=== PATIENT | female | born 1975 | race Caucasian/White ===

== ENCOUNTER 2018-06-03 09:30 | Inpatient (IN) | payer OTHER ==
[2018-06-03] MEDS ORDERED: Acetaminophen 500 MG Tab PO ONE (09:45)
[2018-06-03] MEDS ORDERED: Gabapentin 300 MG Cap PO ONE (09:45)
[2018-06-03] MEDS ORDERED: Scopolamine 1.5 MG Transdermal Patch TOP SCH (09:45)
[2018-06-03] MEDS ORDERED: Celecoxib 200 MG Cap PO ONE (09:45)
[2018-06-03] MEDS ORDERED: Dextrose 5%-Lactated Ringers 1,000 ML IV SCH (10:00)
[2018-06-03] MEDS ORDERED: Rocuronium 50 MG/5 ML Vial ONE ×2 (10:05→13:55)
[2018-06-03] MEDS ORDERED: Neostigmine Methylsulfate 1 MG/ML 5 ML Syringe ONE (10:05)
[2018-06-03] MEDS ORDERED: Dexamethasone 4 MG/ML SDV ONE (10:05)
[2018-06-03] MEDS ORDERED: Glycopyrrolate 0.2 MG/ML 5 ML MDV ONE (10:05)
[2018-06-03] MEDS ORDERED: Propofol 200 MG/20 ML SDV ONE (10:05)
[2018-06-03] MEDS ORDERED: Ondansetron 4 MG/2 ML SDV ONE (10:05)
[2018-06-03] MEDS ORDERED: Succinylcholine 200 MG/10 ML MDV ONE (10:05)
[2018-06-03] MEDS ORDERED: Levofloxacin/Dextrose 5%-Water 500 MG in Premix Bag 1 BAG IV ONE (11:00)
[2018-06-03] MEDS ORDERED: Lidocaine 0.4%/D5W 2 GM/500 ML BAG IV SCH (11:15)
[2018-06-03] MEDS ORDERED: Ropivacaine 60 ML, Dexamethasone 8 MG, EPINEPHrine 0.4 MG, Sodium Chloride 0.9% 17.6 ML NERVRT SCH ×4 (11:15)
[2018-06-03] MEDS ORDERED: Lidocaine 2% 100 MG/5 ML Syringe IVPUSH SCH (11:15)
[2018-06-03] MEDS ORDERED: Ketamine 500 MG/5 ML MDV IV SCH (11:15)
[2018-06-03] MEDS ORDERED: Ketamine 50 MG in Sodium Chloride 0.9% 49.5 ML IV SCH (11:15)
[2018-06-03] MEDS ORDERED: Levofloxacin 500 MG/20 ML SDV ONE (13:53)
[2018-06-03] MEDS ORDERED: hydrOXYzine HCl 100 MG/2 ML SDV IM ONE (15:23)
[2018-06-03] MEDS ORDERED: fentaNYL 100 MCG/2 ML SDV IVPUSH ONE (15:23)
[2018-06-03] MEDS ORDERED: HYDROmorphone 0.5 MG/0.5 ML Syringe IVPUSH PRN (16:16)
[2018-06-03] MEDS ORDERED: HYDROmorphone 1 MG/ML Syringe IV PRN (16:16)
[2018-06-03] MEDS ORDERED: diphenhydrAMINE 50 MG/ML SDV IVPUSH PRN (16:16)
[2018-06-03] MEDS ORDERED: Labetalol 20 MG/4 ML Syringe IVPUSH PRN (16:16)
[2018-06-03] MEDS: Pantoprazole 40 MG Vial IVPUSH SCH (17:21)
[2018-06-03] MEDS: MVI, Adult with Vitamin K 10 ML, Thiamine 200 MG, Chromium/Copper/Mang/Selen/Zn 1 ML in... IV SCH ×4 (17:21)
[2018-06-03] MEDS: Acetaminophen 325 MG Tab PO SCH ×2 (17:22→23:14)
[2018-06-03] MEDS: Ondansetron 4 MG/2 ML SDV IVPUSH PRN (17:44)
[2018-06-03] MEDS: Metoclopramide 10 MG/2 ML SDV IVPUSH PRN (19:19)
[2018-06-03] MEDS: Gabapentin 300 MG Cap PO SCH (20:19)
[2018-06-03] MEDS: Heparin Sodium 5,000 Units/ML Vial SUBCUT SCH (20:19)
[2018-06-03] MEDS ORDERED: Ondansetron 4 MG/2 ML SDV IVPUSH ONE (20:38)
[2018-06-03] MEDS: hydrOXYzine HCl 100 MG/2 ML SDV IM PRN (22:17)
[2018-06-03] MEDS: Dextrose 5%-Lactated Ringers 1,000 ML IV SCH (23:11)
[2018-06-04] MEDS: Metoclopramide 10 MG/2 ML SDV IVPUSH PRN ×3 (01:42→22:01)
[2018-06-04] MEDS: Ondansetron 4 MG/2 ML SDV IVPUSH PRN ×5 (01:45→22:02)
[2018-06-04] MEDS ORDERED: Iohexol 647 MG/ML 50 ML SDV PO STA (02:08)
--- NOTE | 2018-06-04 03:20 | CRLCR ---
INDICATION: Status post gastric sleeve surgery. Evaluate for leaks. COMPARISON: None available. FINDINGS: Two erect films of the abdomen are obtained upon swallowing oral contrast. The film obtained immediately upon swallowing shows passage of contrast into a small diameter gastric fundus with no sign of any extravasation. The film obtained after a 13 minutes delay shows prompt passage of contrast through the nondistended stomach into the nondistended small bowel, reaching the jejunum in the left lower quadrant. There continues to be no sign of extravasation. A Steve-Hanley drain is seen in the left upper quadrant. There is no sign of distention of the small bowel or colon to suggest obstruction or ileus. There is no sign of free air or distinct mass. The osseous structures are normal in appearance for the patient`s age. There is moderate linear atelectasis in the left lung base. The right lung base is clear. IMPRESSION: Prompt passage of swallowed contrast from the small caliber gastric fundus and through the stomach and proximal small bowel. No sign of any extravasation of contrast from the stomach. Moderate linear atelectasis in the left lung base. Dictated by Jose Rob MD @ Jun 04 2018 3:15AM Signed by Dr. Jose Rob @ Jun 04 2018 3:18AM
[2018-06-04] MEDS: Dextrose 5%-Lactated Ringers 1,000 ML IV SCH ×3 (04:53→22:43)
[2018-06-04] MEDS: hydrOXYzine HCl 100 MG/2 ML SDV IM PRN (05:20)
[2018-06-04] MEDS: Acetaminophen 325 MG Tab PO SCH ×4 (07:15→23:13)
[2018-06-04] MEDS ORDERED: LORazepam 2 MG/ML SDV IVPUSH PRN ×3 (07:47→21:22)
[2018-06-04] MEDS: Heparin Sodium 5,000 Units/ML Vial SUBCUT SCH ×2 (07:59→19:39)
[2018-06-04] MEDS: Celecoxib 200 MG Cap PO SCH (09:54)
[2018-06-04] MEDS: Gabapentin 300 MG Cap PO SCH ×3 (09:54→21:44)
[2018-06-04] MEDS: Escitalopram 20 MG Tab PO SCH (09:54)
[2018-06-04] MEDS: SCOPOLAMINE PATCH CHECK TOP SCH (09:55)
[2018-06-04] MEDS: Levofloxacin/Dextrose 5%-Water 500 MG in Premix Bag 1 BAG IV SCH (11:07)
[2018-06-04] MEDS: MVI, Adult with Vitamin K 10 ML, Thiamine 200 MG, Chromium/Copper/Mang/Selen/Zn 1 ML in... IV SCH ×4 (16:55)
[2018-06-04] MEDS: Pantoprazole 40 MG Vial IVPUSH SCH (16:57)
[2018-06-05] MEDS: Ondansetron 4 MG/2 ML SDV IVPUSH PRN ×2 (02:15→07:12)
[2018-06-05] MEDS: Metoclopramide 10 MG/2 ML SDV IVPUSH PRN ×2 (05:18→11:27)
[2018-06-05] MEDS: Acetaminophen 325 MG Tab PO SCH ×4 (05:26→23:19)
[2018-06-05] MEDS: Dextrose 5%-Lactated Ringers 1,000 ML IV SCH (07:11)
[2018-06-05] MEDS: Celecoxib 200 MG Cap PO SCH (08:19)
[2018-06-05] MEDS: Gabapentin 300 MG Cap PO SCH ×3 (08:19→21:09)
[2018-06-05] MEDS: Heparin Sodium 5,000 Units/ML Vial SUBCUT SCH ×2 (08:19→21:08)
[2018-06-05] MEDS: Escitalopram 20 MG Tab PO SCH (08:19)
[2018-06-05] MEDS: SCOPOLAMINE PATCH CHECK TOP SCH (08:20)
[2018-06-05] MEDS ORDERED: Cyanocobalamin (Vitamin B12) 1,000 MCG/ML SDV IM ONE (09:00)
[2018-06-05] MEDS: Magnesium Hydroxide 400 MG/5 ML Susp 30 ML Cup PO SCH ×2 (10:16→21:09)
[2018-06-05] MEDS: Levofloxacin/Dextrose 5%-Water 500 MG in Premix Bag 1 BAG IV SCH (10:18)
--- NOTE | 2018-06-05 14:13 | PN ---
DATE OF SERVICE: 06/05/2018 The patient has been afebrile with stable vital signs. Overall, the nausea now seems to be abating. We will continue the Reglan and Veronica p.r.n. increased oral intake today after getting the shower. She may be ready for discharge home tomorrow. Wilbur Jovel MD /[id number]
[2018-06-05] MEDS: MVI, Adult with Vitamin K 10 ML, Thiamine 200 MG, Chromium/Copper/Mang/Selen/Zn 1 ML in... IV SCH ×4 (17:26)
[2018-06-05] MEDS: Pantoprazole 40 MG Vial IVPUSH SCH (17:26)
[2018-06-06] MEDS: Acetaminophen 325 MG Tab PO SCH ×2 (05:04→12:02)
[2018-06-06] MEDS: Gabapentin 300 MG Cap PO SCH (08:39)
[2018-06-06] MEDS: Celecoxib 200 MG Cap PO SCH (08:39)
[2018-06-06] MEDS: Heparin Sodium 5,000 Units/ML Vial SUBCUT SCH (08:39)
[2018-06-06] MEDS: Escitalopram 20 MG Tab PO SCH (08:40)
--- NOTE | 2018-06-06 13:47 | PN ---
DATE OF SERVICE: 06/04/2018 The patient has been afebrile with stable vital signs. She does have a problem with some nausea that she develops after the Reglan and Zofran time period has run off. We will add some Ativan today to that, and hopefully that will be something that wears off over the next 24 hours. Otherwise, upper GI looks good. She is otherwise doing satisfactorily. We will restart her Kyleena and Lexapro today and add the Ativan to the anti-nausea mix, as mentioned above. Wilbur Jovel MD /[id number]
--- NOTE | 2018-06-07 08:37 | DISCH ---
ADMISSION DIAGNOSES: 1. Morbid obesity. 2. Vitamin D deficiency. 3. Prediabetes. 4. Depression. DISCHARGE DIAGNOSIS: Laparoscopic sleeve gastrectomy, liver biopsy, repair of diaphragmatic hernia, excision of mediastinal lipoma, and excision of accessory spleen for morbid obesity, hepatomegaly, diaphragmatic hernia, mediastinal lipoma, accessory spleen at risk for hemorrhage. Date of surgery: 06/03/2018. Surgeon: Wilbur Jovel MD. HISTORY: Tana Dooley is a 42-year-old female with longstanding history of morbid obesity and increasing comorbidities. After preoperative evaluation and discussion of possible risks and possible complications, she wished to proceed with surgical procedure. HOSPITAL COURSE: Tana had her surgery on 06/03/2018. She had no operative complications. On postoperative day #1, her upper GI was normal and she struggled with nausea. On postoperative day #1 and #2, she was given IV Ativan, IV Reglan, and Zofran. On postoperative day #2 towards evening, her nausea did decrease. She was able to get in on 10,020 mL of liquid. Her SHOBHA drain put out 75 mL. Urine output was 2300. She was able to be discharged to home on 06/06/2018 without any complications. She did receive dietary instruction. PHYSICAL EXAMINATION: GENERAL: Tana Dooley is a 42-year-old female. VITAL SIGNS: Height is 5 feet 4.17 inches, weight is 288 pounds. BMI is 49. TPR 95.8, 62, 16, blood pressure 128/90. HEENT: Negative. NECK: Supple. HEART: Regular rate and rhythm. LUNGS: Clear. ABDOMEN: Sutures intact. Drain is intact at time of rounds. This will be removed prior to discharge. Abdominal binder currently is off. EXTREMITIES: Without peripheral edema. DISPOSITION: Discharged to home. CONDITION: Stable and improving. FOLLOWUP APPOINTMENT: On 06/14/2018 at 10 a.m. HOME MEDICATIONS: 1. Tylenol 650 mg q.6 hours p.r.n. pain. 2. Celebrex 200 mg oral daily, start tomorrow and continue for 14 days. 3. Zofran ODT 4 mg every 6 hours p.r.n. nausea #30. To resume home medications: 1. Lexapro 20 mg oral daily. 2. Kyleena, it is her IUD, continue for 18 months. 3. Stop taking all vitamins and supplements until first postoperative appointment. DIET: Step 2 gastric bypass diet with no cereal for 4 weeks until 07/02/2018. ACTIVITY: Other activity as tolerated. No lifting greater than 10 pounds for 2 weeks. Walk 6 times daily, distance and time as tolerated. Driving after discharge: Do not drive for 1 week. Shower/bathing, may shower. DISCHARGE INSTRUCTIONS: Notify provider if any fever. Wound incision care, keep site clean and dry. Wear abdominal binder for 2 weeks and then as tolerated. Use incentive spirometer 10 times every hour while awake.
--- NOTE | 2018-06-09 10:52 | OR ---
DATE OF PROCEDURE: 06/03/2018 PREOPERATIVE DIAGNOSIS: Morbid obesity. POSTOPERATIVE DIAGNOSES: 1. Morbid obesity. 2. Marked hepatomegaly. 3. Paraesophageal diaphragmatic hernia. 4. Mediastinal lipoma. 5. 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 OPERATIVE PROCEDURES: 1. Laparoscopic sleeve gastrectomy (92905). 2. Nash-Cut needle liver biopsy (95831). 3. Repair of paraesophageal diaphragmatic hernia (60269). 4. Excision of mediastinal lipoma (93819). 5. Excision of accessory spleen adherent to omental peritoneum (16549). ANESTHESIA: General. ASSISTANTS: 1. Emily Nicholson PA-C. 2. Garry Reyes MS1. INDICATIONS FOR PROCEDURE: This is a 42-year-old female presenting with longstanding morbid obesity and increasingly significant comorbidities. After preoperative evaluation and discussion, she wished to proceed with a sleeve gastrectomy. Potential risks including bleeding, infection, injury to the underlying viscera, leaks from the staple lines, as well as the possibility of cardiopulmonary, septic, or hemorrhagic complications leading to were all discussed, and the patient wishes to proceed. DETAILS OF PROCEDURE: The patient was taken to the operating room. After general endotracheal anesthesia was induced, she was placed in a lithotomy position, and the abdomen was prepped and draped. At 15 cm inferior and 5 cm left of the xiphoid process, a transverse incision was made and the peritoneal cavity entered under direct vision with an Optiview trocar inflated to 15 mmHg pressure with CO2. Laparoscope was then reinserted. No underlying trocar insertion site injuries were seen. Following this, 5 additional trocars were placed across the upper and mid abdomen, and then bilateral transversus abdominis plane blocks were placed. The liver was noted to be markedly enlarged and fatty infiltrated, and Nash-Cut needle biopsies were taken from the left lobe of the liver. Minimal bleeding from the biopsy sites was controlled with electrocautery. At this point, the dissection began on the greater curvature, around the midpoint, and division of the omentum was initiated with Harmonic scalpel, as one progressed proximally. The patient was noted to have an accessory spleen measuring around 1.5 cm and that started to bleed somewhat on manipulation of the omentum and there was felt to be a risk for significant postoperative bleeding. Therefore, this was excised off the omental peritoneal surface and sent as a specimen. As one further dissected through the short gastric vessels, the area along the esophagogastric junction was dissected out. The patient was noted to have a paraesophageal diaphragmatic hernia with prolapse of some perigastric fat and a portion of the fundus of the stomach alongside the hernia, and this was reduced. During the course of reduction, the patient was noted to have a mediastinal lipoma, which was about the size of a ping-pong ball and was also excised. The diaphragmatic hernia was then accomplished with 0 Ethibond sutures reinforced with PTFE pledgets. The omental dissection was then continued down to 0.2 cm proximal to the pyloric sphincter, which would be the point of initiation of the gastrectomy staple line. The antrum and the area of the stomach below the incisura angularis were then mapped out so as to avoid overtightening at the incisura angularis. This was mapped out with spots of electrocautery. The first 3 firings of the sleeve gastrectomy was accomplished with a plane of 60 mm black loads. At that point, a 32-Luxembourgish suction tube was placed orally per Anesthesia and then positioned along the lesser curvature of the stomach and slightly into the antrum. This was then pulled up against the lesser curvature snugly and suction applied. The remainder of this gastrectomy was then accomplished with a combination of reinforced black and reinforced purple loads, and at that point, the specimen was retrieved off to the side. The staple line was inspected and no further problems were noted. The entire staple line was then reinforced with fibrin sealant, focusing specifically on the esophagogastric junction. Omentum was then tacked up along the entire staple line as well. At this point, the orogastric tube was taken off suction. Meanwhile, the gastrectomy staple line was bathed in antibiotic-containing saline solution and the pylorus included. Air was injected to tightly distend the gastrectomy. No leaks were seen and no bleeding was seen. The orogastric tube was then removed. At this point, the specimen was removed through the left lateral trocar site, and a single Steve-Hanley drain was then placed alongside the esophagogastric junction and then from there into the splenic fossa and taken out through the left lateral trocar site. With no further problems noted, trocars were removed and the peritoneal cavity deflated. Incisions were closed using 4-0 Vicryl skin stitch and drain was affixed with 4-0 Vicryl stitch as well. The patient was taken to the recovery room in satisfactory condition. Physician emergency veterinary assistant, Emily Nicholson, played an essential role in assisting in this case, helping to position the patient, retract structures as needed, as well as suturing and cutting sutures when indicated. Her presence improved the patient's safety and decreased operative time. Wilbur Jovel MD /[id number]
== END 2018-06-06 13:20 | disposition home or self-care (01) | DRG 620 ==
LOC: EDSTATUS 09:30 → JP.SDS 09:34 → JP.MS 09:34 → JP.2SS 15:10
PROVIDERS: ADMIT Surgery; ATTEND Surgery
PROC: 0DB64Z3 Excision of Stomach, Percutaneous Endoscopic Approach, Vertical (ICD-10-PCS; principal; 2018-06-03)
PROC: 0FB24ZX Excision of Left Lobe Liver, Percutaneous Endoscopic Approach, Diagnostic (ICD-10-PCS; 2018-06-03)
PROC: 07BP4ZZ Excision of Spleen, Percutaneous Endoscopic Approach (ICD-10-PCS; 2018-06-03)
PROC: 0BQT4ZZ Repair Diaphragm, Percutaneous Endoscopic Approach (ICD-10-PCS; 2018-06-03)
PROC: 0WBC4ZX Excision of Mediastinum, Percutaneous Endoscopic Approach, Diagnostic (ICD-10-PCS; 2018-06-03)
DX: E66.01 Morbid (severe) obesity due to excess calories (principal); Q89.09 Congenital malformations of spleen; R16.0 Hepatomegaly, not elsewhere classified; K76.0 Fatty (change of) liver, not elsewhere classified; Z68.42 Body mass index [BMI] 45.0-49.9, adult; D17.4 Benign lipomatous neoplasm of intrathoracic organs; E55.9 Vitamin D deficiency, unspecified; R73.03 Prediabetes; F32.9 Major depressive disorder, single episode, unspecified; Z87.891 Personal history of nicotine dependence; Z97.5 Presence of (intrauterine) contraceptive device; Z88.1 Allergy status to other antibiotic agents; Z88.0 Allergy status to penicillin; Z88.8 Allergy status to other drugs, medicaments and biological substances
CPT/HCPCS: 36415; 74240; 81025; 82962; 86850; 86900; 86901; 88304; 88305; 88307; 88313; 94762; A9270-GY; C9113; J0171; J0330; J1100; J1644; J1956; J2001; J2060; J2405; J2704; J2710; J2765; J2795; J3010; J3410; J3411; J3420; J3490; J7042; J7050; Q9967